=== PATIENT | male | born 1960 | race Caucasian/White ===

== ENCOUNTER 2020-03-07 17:20 | Emergency (ER) | payer OTHER ==
[~2020-03-07] VITALS: Ht 193 cm; Wt 107.0 kg
--- NOTE | 2020-03-07 17:35 | NUR ---
ASSUMED CARE OF PT AT THIS TIME FROM LOBBY. AMBULATORY TO ROOM WITH STEADY GAIT. DR. RIZZO AT BEDSIDE FOR EVALUATION. 59 Y/O M PRESENTS STATING "PAIN IN MY LEFT SIDE AND FLANK FOR ABOUT A WEEK, I HAVE HAD 24 KIDNEY STONES BEFORE THIS FEELS JUST LIKE IT, I KNOW THAT'S WHAT IT IS." RATES PAIN /. DENIES URINARY PAIN OR DIFFICULTY OR ANY HEMATURIA. CONT PULSE OX, BP MONITORS APPLIED. BP ELEVATED, HX HTN, COMPLIANT WITH MEDICATIONS PER PT. CALL LIGHT IN REACH. FALL PRECAUTIONS IN PLACE. A&OX4. ASSESSMENT COMPLETED. AWAITING ORDERS FROM ERP.
[2020-03-07] MEDS ORDERED: KETOROLAC 60 MG/2 ML ONE (17:40)
[2020-03-07] MEDS ORDERED: ONDANSETRON ODT 4 MG ONE (17:40)
[2020-03-07] MEDS ORDERED: HYDROcodone/APAP 5/325 TABLET ONE (17:41)
[2020-03-07 17:48] VITALS: BP 160/82
--- NOTE | 2020-03-07 17:50 | NUR ---
PT MEDICATED NOTED IN [facility] FOR 11/12 LUQ ABD/LEFT FLANK PAIN. VSS. CALL LIGHT IN REACH. NO IV AT THIS TIME PER DR. RIZZO. LAB AT BEDSIDE. PT AMBULATED TO RESTROOM WITH STEADY GAIT, CLEAN CATCH UA COLLECTED AND SENT TO LAB. RESTING IN POSITION OF COMFORT. AWAITING CT. CALL LIGHT IN REACH. FALL PRECAUTIONS IN PLACE
[2020-03-07] MEDS ORDERED: LISI-170 PO (17:55)
[2020-03-07] MEDS ORDERED: TAMS-11 PO (17:55)
[2020-03-07] MEDS ORDERED: HYDROcodone/APAP 5/325 TABLET PO ONE (18:00)
[2020-03-07] MEDS ORDERED: ONDANSETRON ODT 4 MG PO ONE (18:00)
[2020-03-07] MEDS ORDERED: KETOROLAC 30 MG/1 ML IM ONE (18:00)
[2020-03-07 18:08] LABS: MICROSCOPIC NOT IND
[2020-03-07 18:09] LABS: BASOPHILS % (AUTO) 1 % (0-1); EOSINOPHILS % (AUTO) 2 % (1-7); LYMPHOCYTES % (AUTO) 22 % (22-44); MEAN CORPUSCULAR HEMOGLOBIN 33.1 pg (27.5-34.5); MEAN CORPUSCULAR HGB CONC 33.6 g/dL (33.2-36.2); MEAN PLATELET VOLUME 7.4 fL (7.4-10.4); MONOCYTES % (AUTO) 10 % (2-9); NEUTROPHILS % (AUTO) 66 % (42-75); PLATELET COUNT 202 x10^3/uL (130-400); RED BLOOD COUNT 4.77 x10^6/uL (4.38-5.82); RED CELL DISTRIBUTION WIDTH 14.5 % (9.4-14.8)
[2020-03-07 18:13] LABS: MD NO
[2020-03-07 18:19] LABS: ALANINE AMINOTRANSFERASE 170 U/L (12-78); ALBUMIN 3.6 g/dL (3.4-5.0); ANION GAP 7 mmol/L (5-15); CALCIUM 8.6 mg/dL (8.5-10.1); CHLORIDE 111 mmol/L (98-107); CREATININE 0.87 mg/dL (0.7-1.3)
[2020-03-07 18:22] LABS: ALKALINE PHOSPHATASE 65 U/L (45-117); BILIRUBIN,TOTAL 0.8 mg/dL (0.2-1.0); TOTAL PROTEIN 8.1 g/dL (6.4-8.2)
--- NOTE | 2020-03-07 18:30 | NUR ---
PT IN CT
[2020-03-07] MEDS ORDERED: OMNIPAQUE 350 MG/ML, 100ML BOTTLE ONE (18:55)
--- NOTE | 2020-03-07 18:56 | NUR ---
PT BACK FROM CT. REQUESTING ADDITIONAL PAIN MEDICATION, TO DISCUSS WITH ERP. REPORT AND TRANSFER OF CARE TO IRINA BERMAN AT THIS TIME.
[2020-03-07] MEDS ORDERED: HYDROmorphone 1 MG/ML, 1ML INJ ONE (19:25)
[2020-03-07] MEDS ORDERED: HYDROmorphone 1 MG/ML, 1ML INJ IM ONE (19:30)
== END 2020-03-07 19:53 | disposition home or self-care (01) ==
LOC: ED 18:18
DX: N28.1 Cyst of kidney, acquired (principal); I10 Essential (primary) hypertension
CPT/HCPCS: 36415; 74176; 80053; 81003; 85025; 96372; 99284; J1170; J1885; Q0162; Q9967